=== PATIENT | male | born 1955 | race Caucasian/White ===

== ENCOUNTER 2017-03-01 02:30 | Observation (INO) | payer MEDICARE, OTHER ==
[2017-03-01] VITALS (13 sets, daily range): BP systolic 130–178; BP diastolic 75–107; PULSE 65–89; RESP 16–20; TEMP 97.5–98.6; O2SAT 93–99
[~2017-03-01] VITALS: Ht 175.3 cm; Wt 93.0 kg
[~2017-03-01 02:30] MED LIST: ALPR.25 PO; CEPH500C3 PO; HYDR-2768 PO; LISI-363 PO; SULF1TAB47 PO; TRAM50 PO; TRAZ150T75 PO; [UNRECOGNIZED DRUG - SUPPLY]
[2017-03-01] MEDS ORDERED: SODIUM CHLORIDE 0.9% FLUSH 10 ML FLUSH IVF PRN ×2 (03:00→06:30)
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
[2017-03-01 03:23] LABS: AUTOMATED NEUTROPHIL # 4.6 TH/MM3 (1.8-7.7); BASOPHIL # 0.1 TH/MM3 (0-0.2); BASOPHIL % 0.8 % (0.0-2.0); EOSINOPHIL # 0.1 TH/MM3 (0-0.4); EOSINOPHIL % 0.8 % (0.0-4.0); HEMATOCRIT 46.6 % (39.0-51.0); HEMO FLAGS DIFF FINAL; LYMPH % 26.3 % (9.0-44.0); LYMPHOCYTE # 1.9 TH/MM3 (1.0-4.8); MEAN CORPUSCULAR HEMOGLOBIN 32.4 PG (27.0-34.0); MEAN CORPUSCULAR HGB CONC 34.1 % (32.0-36.0); MONO % 8.7 % (0.0-8.0); NEUT % 63.4 % (16.0-70.0); PLATELET COUNT 249 TH/MM3 (150-450); RED CELL DISTRIBUTION WIDTH 14.1 % (11.6-17.2); WHITE BLOOD COUNT 7.2 TH/MM3 (4.0-11.0)
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
[2017-03-01 03:33] LABS: APTT (PATIENT) 27.1 SEC (24.3-30.1); PROTHROMBIN TIME - PATIENT 10.8 SEC (9.8-11.6)
[2017-03-01 03:47] LABS: ANION GAP 15 MEQ/L (5-15); BICARBONATE 21.4 MEQ/L (21.0-32.0); BLOOD UREA NITROGEN 11 MG/DL (7-18); CHLORIDE 114 MEQ/L (98-107); GLOMERULAR FILTRATION RATE 85 ML/MIN (>89); MAGNESIUM 1.9 MG/DL (1.5-2.5); POTASSIUM 3.4 MEQ/L (3.5-5.1); SODIUM (NA) 150 MEQ/L (136-145)
[2017-03-01 03:51] LABS: CREATINE KINASE 208 U/L (39-308)
[2017-03-01 03:59] LABS: BLOOD, URINE NEG (NEG); COMMENT (UR) CULT NOT INDICATED; CULTURE IF INDICATED CULT NOT INDICATED; GLUCOSE,URINE NEG (NEG); KETONE, URINE NEG (NEG); MUCUS URINE FEW /lpf (OCC); NITRITE,URINE NEG (NEG); URINE COLOR YELLOW (YELLW/STRAW)
[2017-03-01 04:17] LABS: CKMB 2.6 NG/ML (0.5-3.6)
[2017-03-01] MEDS ORDERED: IOHEXOL 350 MG/ML 10 ML VIAL (for RAD DIAG) IV ONE (04:45)
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
[2017-03-01] MEDS ORDERED: MAGNESIUM HYDROXIDE SUSP 30 ML CUP PO PRN (06:30)
[2017-03-01] MEDS ORDERED: NALOXONE HCL 0.4 MG/ML AMP IV PRN (06:30)
[2017-03-01] MEDS ORDERED: SODIUM CHLORIDE 0.9% FLUSH 10 ML FLUSH IV FLUSH PRN (06:30)
[2017-03-01] MEDS ORDERED: ACETAMINOPHEN 325 MG TAB PO PRN (06:30)
[2017-03-01] MEDS ORDERED: BISACODYL 10 MG SUPP RECTAL PRN (06:30)
[2017-03-01] MEDS ORDERED: SENNOSIDES 8.6 MG TAB PO PRN (06:30)
[2017-03-01] MEDS ORDERED: LACTULOSE SYRUP 20 GM/30 ML CUP PO PRN (06:30)
[2017-03-01] MEDS: SODIUM CHLOR 0.45% 1000 ML INJ 1,000 ML IV SCH ×3 (07:00→17:45)
[2017-03-01] MEDS: DOCUSATE SODIUM 50 MG/SENNA 8.6 MG TAB PO SCH ×2 (08:28→20:59)
[2017-03-01] MEDS: SODIUM CHLORIDE 0.9% FLUSH 10 ML FLUSH IV FLUSH SCH ×2 (08:28→20:58)
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
[2017-03-01] MEDS ORDERED: SODIUM CHLORIDE 0.9% FLUSH 10 ML FLUSH IV FLUSH SCH (09:00)
[2017-03-01] MEDS ORDERED: LISI-515 PO (09:40)
[2017-03-01] MEDS ORDERED: TRAZ50TA12 PO (09:40)
[2017-03-01] MEDS ORDERED: TRAM50TA PO (09:40)
[2017-03-01] MEDS ORDERED: ALPR0.25 PO (09:40)
[2017-03-01] MEDS ORDERED: HYDR25TA5 PO (09:40)
[2017-03-01] MEDS: ASPIRIN EC 81 MG TABEC PO SCH (11:35)
[2017-03-01] MEDS ORDERED: HYDR-3366 PO ×2 (11:51→15:30)
[2017-03-01] MEDS ORDERED: ALPR2TAB3 PO ×2 (11:51→15:30)
[2017-03-01] MEDS: HYDROCHLOROTHIAZIDE 25 MG TAB PO SCH (14:27)
[2017-03-01] MEDS: LISINOPRIL 20 MG TAB PO SCH (14:27)
[2017-03-01] MEDS ORDERED: CELE20TA PO (15:30)
--- NOTE | 2017-03-01 15:39 | EKG ---
Date Performed: 03/01/2017 Time Performed: 02:36:12 PTAGE: 61 years EKG: Sinus rhythm BORDERLINE LEFT AXIS DEVIATION When compared to previous tracing, previous tracing read as Possible inferior infarct-age undetermined, but there are no Findings to confirm that on this tracing. BORDERL INE ECG PREVIOUS TRACING : 06/23/2015 00.24 DOCTOR: Emerson Gunter Interpretating Date/Time 03/01/2017 15:38:54
--- NOTE | 2017-03-01 16:05 | RADRPT ---
EXAM DATE/TIME: 03/01/2017 15:35 [facility] COMPARISON: No previous studies available for comparison. INDICATIONS : Left sided weakness. MEDICAL HISTORY : Hypertension. Cardiovascular disease SURGICAL HISTORY : Abdominal aortic aneurysm repair. Inguinal hernia repair. Appendectomy. ENCOUNTER: Initial ACUITY: 1 day PAIN SCORE: 0/10 LOCATION: cranial TECHNIQUE: Multiplanar, multisequence MRI of the brain was performed without contrast. FINDINGS: CEREBRUM: The ventricles are normal for age. No evidence of midline shift, mass lesion, hemorrhage or acute in farction. No extraaxial fluid collections are seen. The pituitary gland and suprasellar cistern are normal in configuration. WHITE MATTER: No significant signal abnormalities are seen in the white matter. POSTERIOR FOSSA: The cerebellum and brainstem are intact. The 4th ventricle is midline. The cerebellopontine angle is unremarkable. The cerebellar tonsils are normal in position. DIFFUSION IMAGING: No focal areas of restricted diffusion are seen. No evidence of acute infarction. EXTRACRANIAL: The visualized portions of the orbits and paranasal sinuses are unremarkable. CONCLUSION: No acute disease. Sean rTan MD on March 01, 2017 at 16:02 Board Certified Radiologist. This report was verified electronically.
[2017-03-01] MEDS: ACETAMINOPHEN/HYDROcodone 325 MG/10 MG TAB PO PRN ×2 (17:25→23:43)
[2017-03-01] MEDS: ALPRAZolam 1 MG TAB PO PRN (17:26)
[2017-03-01] MEDS ORDERED: traZODone HCL 100 MG TAB PO SCH (21:00)
[2017-03-02 00:12] VITALS: BP 144/78; PULSE 68; RESP 18; TEMP 98.4; O2SAT 97
[2017-03-02] MEDS: ALPRAZolam 1 MG TAB PO PRN ×2 (00:49→07:27)
[2017-03-02 03:55] VITALS: BP 176/88; PULSE 60; RESP 18; TEMP 98.8; O2SAT 95
[2017-03-02] MEDS: ACETAMINOPHEN/HYDROcodone 325 MG/10 MG TAB PO PRN (05:50)
[2017-03-02 06:37] LABS: AUTOMATED NEUTROPHIL # 3.6 TH/MM3 (1.8-7.7); BASOPHIL % 0.5 % (0.0-2.0); EOSINOPHIL # 0.1 TH/MM3 (0-0.4); EOSINOPHIL % 1.7 % (0.0-4.0); HEMATOCRIT 44.5 % (39.0-51.0); HEMO FLAGS DIFF FINAL; LYMPH % 32.9 % (9.0-44.0); LYMPHOCYTE # 2.1 TH/MM3 (1.0-4.8); MEAN CELL VOLUME 95.8 FL (80.0-100.0); MEAN CORPUSCULAR HEMOGLOBIN 31.6 PG (27.0-34.0); MONO % 7.6 % (0.0-8.0); NEUT % 57.3 % (16.0-70.0); PLATELET COUNT 204 TH/MM3 (150-450); RED BLOOD COUNT 4.64 MIL/MM3 (4.50-5.90); RED CELL DISTRIBUTION WIDTH 14.4 % (11.6-17.2); WHITE BLOOD COUNT 6.4 TH/MM3 (4.0-11.0)
[2017-03-02 07:02] LABS: BICARBONATE 30.5 MEQ/L (21.0-32.0); POTASSIUM 3.6 MEQ/L (3.5-5.1)
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
[2017-03-02 07:40] VITALS: BP 170/109; PULSE 54; RESP 20; TEMP 98.2; O2SAT 96
[2017-03-02 08:10] VITALS: PULSE 64
[2017-03-02] MEDS: SODIUM CHLOR 0.45% 1000 ML INJ 1,000 ML IV SCH (08:10)
[2017-03-02] MEDS: DOCUSATE SODIUM 50 MG/SENNA 8.6 MG TAB PO SCH (08:11)
[2017-03-02] MEDS: HYDROCHLOROTHIAZIDE 25 MG TAB PO SCH (08:11)
[2017-03-02] MEDS: LISINOPRIL 20 MG TAB PO SCH (08:11)
[2017-03-02] MEDS: SODIUM CHLORIDE 0.9% FLUSH 10 ML FLUSH IV FLUSH SCH (08:11)
[2017-03-02] MEDS: ASPIRIN EC 81 MG TABEC PO SCH (08:11)
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
[2017-03-02] MEDS ORDERED: cloNIDine HCL 0.1 MG TAB PO PRN (08:30)
[2017-03-02] MEDS ORDERED: INFLUENZA VIRUS VACCINE (QUADRIVALENT) 0.5 ML SYR IM ONE (10:00)
[2017-03-02 10:03] VITALS: BP 120/78; PULSE 65
== END 2017-03-02 12:36 | disposition home or self-care (01) ==
LOC: NEPC 02:30 → NEDA 06:26 → NEPGCP 07:39
PROVIDERS: ADMIT Internal Medicine; ATTEND Internal Medicine
DX: R07.89 Other chest pain (principal); I11.0 Hypertensive heart disease with heart failure; I50.9 Heart failure, unspecified; F41.9 Anxiety disorder, unspecified; G89.29 Other chronic pain; M54.5 Low back pain; E87.0 Hyperosmolality and hypernatremia; F10.10 Alcohol abuse, uncomplicated; R20.0 Anesthesia of skin; I25.2 Old myocardial infarction; G62.9 Polyneuropathy, unspecified; M19.90 Unspecified osteoarthritis, unspecified site; F31.9 Bipolar disorder, unspecified; Y90.6 Blood alcohol level of 120-199 mg/100 ml; Z88.5 Allergy status to narcotic agent; Z86.73 Personal history of transient ischemic attack (TIA), and cerebral infarction without residual deficits; Z86.74 Personal history of sudden cardiac arrest
CPT/HCPCS: 70450; 70551; 71010; 74177; 80048; 80307; 81001; 82550; 82552; 83735; 84484; 85025; 85610; 85730; 93005; 99285; G0378; Q9967

== ENCOUNTER 2017-04-12 04:04 | Observation (INO) | payer MEDICARE ==
[2017-04-12] VITALS (9 sets, daily range): BP systolic 115–139; BP diastolic 79–88; PULSE 63–75; RESP 17–19; TEMP 96.2–97.6; O2SAT 92–99
[~2017-04-12] VITALS: Ht 175.3 cm; Wt 91.7 kg
[~2017-04-12 04:04] MED LIST changes: -ALPR.25 PO; +ALPR2TAB3 PO; +CELE20TA PO; -CEPH500C3 PO; -HYDR-2768 PO; +HYDR-3366 PO; +HYDR25TA5 PO; -LISI-363 PO; +LISI-515 PO; -SULF1TAB47 PO; -TRAM50 PO; -TRAZ150T75 PO; -[UNRECOGNIZED DRUG - SUPPLY]
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
[2017-04-12] MEDS ORDERED: XANA2TAB2 PO (04:14)
[2017-04-12] MEDS ORDERED: TRAZ100T6 PO (04:14)
[2017-04-12] MEDS ORDERED: CELE50CA PO (04:14)
[2017-04-12] MEDS ORDERED: SODIUM CHLORIDE 0.9% FLUSH 10 ML FLUSH IVF PRN (04:15)
[2017-04-12] MEDS ORDERED: NITROGLYCERIN 2% OINT 1 GM PACKET TOP ONE (04:15)
[2017-04-12] MEDS ORDERED: ASPIRIN 325 MG TAB PO ONE (04:15)
[2017-04-12 04:35] LABS: AUTOMATED NEUTROPHIL # 3.9 TH/MM3 (1.8-7.7); BASOPHIL # 0.1 TH/MM3 (0-0.2); BASOPHIL % 0.9 % (0.0-2.0); EOSINOPHIL # 0.1 TH/MM3 (0-0.4); EOSINOPHIL % 1.1 % (0.0-4.0); HEMATOCRIT 49.6 % (39.0-51.0); HEMO FLAGS DIFF FINAL; LYMPH % 31.2 % (9.0-44.0); LYMPHOCYTE # 2.1 TH/MM3 (1.0-4.8); MEAN CELL VOLUME 94.5 FL (80.0-100.0); MEAN CORPUSCULAR HEMOGLOBIN 31.5 PG (27.0-34.0); MEAN CORPUSCULAR HGB CONC 33.3 % (32.0-36.0); MONO % 6.5 % (0.0-8.0); NEUT % 60.3 % (16.0-70.0); PLATELET COUNT 285 TH/MM3 (150-450); RED BLOOD COUNT 5.25 MIL/MM3 (4.50-5.90); RED CELL DISTRIBUTION WIDTH 12.6 % (11.6-17.2); WHITE BLOOD COUNT 6.6 TH/MM3 (4.0-11.0)
[2017-04-12 04:46] LABS: CHLORIDE 108 MEQ/L (98-107); POTASSIUM 3.3 MEQ/L (3.5-5.1); SODIUM (NA) 142 MEQ/L (136-145)
[2017-04-12 04:50] LABS: ANION GAP 9 MEQ/L (5-15); BICARBONATE 25.4 MEQ/L (21.0-32.0); BLOOD UREA NITROGEN 13 MG/DL (7-18)
[2017-04-12 04:52] LABS: APTT (PATIENT) 27.5 SEC (24.3-30.1); PROTHROMBIN TIME - PATIENT 11.1 SEC (9.8-11.6)
[2017-04-12 04:53] LABS: ALT (GPT) 43 U/L (12-78); AST (GOT) 35 U/L (15-37); GLOMERULAR FILTRATION RATE 78 ML/MIN (>89)
[2017-04-12 04:54] LABS: TOTAL BILIRUBIN ADULT 0.8 MG/DL (0.2-1.0)
[2017-04-12 04:56] LABS: ALKALINE PHOSPHATASE 51 U/L (45-117); CREATINE KINASE 170 U/L (39-308)
--- NOTE | 2017-04-12 04:56 | RADRPT ---
EXAM DATE/TIME: 04/12/2017 04:23 [facility] COMPARISON: CHEST SINGLE AP, March 01, 2017, 3:07. INDICATIONS : Left upper chest pain. MEDICAL HISTORY : Hypertension. Congestive heart failure. TIA SURGICAL HISTORY : Inguinal hernia repair. Appendectomy. Abdominal aortic aneurysm repair. Ruptured aorta ENCOUNTER: Initial ACUITY: 1 day PAIN SCORE: 8/10 LOCATION: Left chest FINDINGS: A single view of the chest demonstrates the lungs to be symmetrically aerated without evidence of mas s, infiltrate or effusion. The cardiomediastinal contours are unremarkable. Old rib fractures on the left. CONCLUSION: No acute disease. Romeo Means MD on April 12, 2017 at 4:54 Board Certified Radiologist. This report was verified electronically.
[2017-04-12 05:08] LABS: CKMB 3.1 NG/ML (0.5-3.6)
[2017-04-12] MEDS ORDERED: POTASSIUM CHLORIDE 20 MEQ CONTROLLED RELEASE TAB PO ONE (05:15)
[2017-04-12] MEDS ORDERED: SODIUM CHLORIDE 0.9% FLUSH 10 ML FLUSH IV FLUSH PRN (05:15)
[2017-04-12] MEDS ORDERED: ACETAMINOPHEN 500 MG CPLT PO PRN (05:15)
[2017-04-12] MEDS ORDERED: ONDANSETRON HCL 4 MG/2 ML VIAL IV PRN (05:15)
[2017-04-12] MEDS ORDERED: ALPRAZolam 1 MG TAB PO PRN (07:15)
[2017-04-12] MEDS ORDERED: HYDROCHLOROTHIAZIDE 25 MG TAB PO SCH (09:00)
[2017-04-12] MEDS ORDERED: CITALOPRAM HYDROBROMIDE 20 MG TAB PO SCH (09:00)
[2017-04-12] MEDS ORDERED: LISINOPRIL 20 MG TAB PO SCH (09:00)
[2017-04-12] MEDS ORDERED: SODIUM CHLORIDE 0.9% FLUSH 10 ML FLUSH IV FLUSH SCH (09:00)
[2017-04-12 09:05] LABS: CREATINE KINASE 144 U/L (39-308)
[2017-04-12 09:17] LABS: CKMB 2.6 NG/ML (0.5-3.6)
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
[2017-04-12] MEDS ORDERED: REGADENOSON INJ 0.4 MG/5 ML SYR IV ONE (10:45)
[2017-04-12 11:18] LABS: CREATINE KINASE 144 U/L (39-308)
--- NOTE | 2017-04-12 12:14 | EKG ---
Date Performed: 04/12/2017 Time Performed: 10:33:41 PTAGE: 62 years EKG: Sinus rhythm LOW QRS VOLTAGE IN PRECORDIAL LEADS PATTERN CONSISTENT WITH PULMONARY DISEASE ABNORMAL ECG PREVIOUS TRACING : 04/12/2017 08.07 Compared to prior tracing no significant change DOCTOR: Favio Persaud Interpretating Date/Time 04/12/2017 12:11:58
--- NOTE | 2017-04-12 12:22 | TR ---
Date Performed: 04/12/2017 Time Performed: 11:14:17 DOCTOR: See Lee DRUG LIST: CLINICAL HISTORY: REASON FOR TEST: Chest pain REASON FOR ENDING: OBSERVATION: CONCLUSION: Lexiscan stress test was performed under standard four minute protocol. Radionuclide was injected one minute prior to ending the test. No electrocardiographic abormalities were present to suggest ischemia. Nuclear imaging and interpretation are pending. COMMENTS: Pending results of scan
--- NOTE | 2017-04-12 12:34 | RADRPT ---
EXAM DATE/TIME: 04/12/2017 10:47 [facility] COMPARISON: MYOCARDIAL PERF PHARM SPECT, GATED W/EF, June 06, 2011, 12:39. INDICATIONS : Left chest pain. Angina. DOSE: 26.6 mCi Tc99m Myoview at stress. 8.8 mCi Tc99m Myoview at rest. 0.4 mg Lexiscan STRESS SYMPTOMS: Facial flush, nausea and chest pain. EJECTION FRACTION: 62% MEDICAL HISTORY : Myocardial infarction. Congestive heart failure. Aneurysm, abdominal. Hypertension. Hiatal hernia. SURGICAL HISTORY : CABG Abdominal aortic aneurysm repair. Appendectomy. Hernia repair. ENCOUNTER: Initial ACUITY: 1 day PAIN SCALE: 8/10 LOCATION: Left chest TECHNIQUE: The patient underwent pharmacologic stress with infusion of prescribed dose. Continuous ECG tracing was monitored during stress. Gated SPECT imaging was performed after stress and conventional SPECT i maging was performed at rest. The examination was performed on a SPECT/CT scanner, both attenuation and non-corrected datasets were reviewed. FINDINGS: DISTRIBUTION: The maximum perfused segment at stress is in the anterolateral wall. PERFUSION STUDY: The pattern of perfusion at stress shows approximately 10% redistribution in segments of the anterose ptal and septal desai. This would not be considered statistically significant, however. GATED STUDY: There is intact wall motion and thickening without hypokinetic or dyskinetic segments. CONCLUSION: 1. 10% redistribution in punctate segments of the anteroseptal and septal desai which would not be co nsidered significant. As such, no scintigraphic findings of infarct or ischemia. 2. Excellent wall motion throughout with an estimated ejection fraction of 62% RISK CATEGORY: Low (<1% Annual Mortality Rate) Viraj De La Cruz MD on April 12, 2017 at 12:28 Board Certified Radiologist. This report was verified electronically.
[2017-04-12] MEDS ORDERED: POTASSIUM CHLORIDE 10 MEQ CONTROLLED RELEASE TAB PO ONE (13:00)
--- NOTE | 2017-04-12 13:17 | EKG ---
Date Performed: 04/12/2017 Time Performed: 08:07:02 PTAGE: 62 years EKG: Sinus rhythm BORDERLINE LEFT AXIS DEVIATION POSSIBLE INFERIOR INFARCT, AGE INDETERMINE BORDERLINE ECG INTERPRETAT ION BASED ON A DEFAULT AGE OF 40 YEARS PREVIOUS TRACING : 04/12/2017 05.54 Compared to prior tracing no significant change DOCTOR: Favio Persaud Interpretating Date/Time 04/12/2017 13:16:14
--- NOTE | 2017-04-12 13:21 | EKG ---
Date Performed: 04/12/2017 Time Performed: 05:54:55 PTAGE: 62 years EKG: Sinus rhythm INFERIOR MYOCARDIAL INFARCTION ABNORMAL ECG PREVIOUS TRACING : 04/12/2017 05.30 Compared to prior tracing no significant change DOCTOR: Favio Persaud Interpretating Date/Time 04/12/2017 13:19:43
--- NOTE | 2017-04-12 13:21 | EKG ---
Date Performed: 04/12/2017 Time Performed: 05:30:30 PTAGE: 62 years EKG: Sinus rhythm INFERIOR MYOCARDIAL INFARCTION ABNORMAL ECG PREVIOUS TRACING : 04/12/2017 04.14 Compared to prior tracing no significant change DOCTOR: Favio Persaud Interpretating Date/Time 04/12/2017 13:20:41
--- NOTE | 2017-04-12 13:24 | EKG ---
Date Performed: 04/12/2017 Time Performed: 04:14:48 PTAGE: 62 years EKG: Sinus rhythm POSSIBLE INFERIOR INFARCT NORMAL ECG PREVIOUS TRACING : 03/01/2017 02.36 Compared to prior tracing no significant change DOCTOR: Favio Persaud Interpretating Date/Time 04/12/2017 13:23:20
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
[2017-04-12] MEDS ORDERED: traZODone HCL 100 MG TAB PO SCH (21:00)
== END 2017-04-12 16:00 | disposition home or self-care (01) ==
LOC: PHED 04:04 → PHEDA 05:15 → PH5A 06:36
PROVIDERS: ADMIT Hospitalist; ATTEND Hospitalist
DX: R07.89 Other chest pain (principal); I10 Essential (primary) hypertension; F31.9 Bipolar disorder, unspecified; M54.9 Dorsalgia, unspecified; G89.29 Other chronic pain; R10.13 Epigastric pain; M54.2 Cervicalgia; M79.602 Pain in left arm; R11.0 Nausea; R61 Generalized hyperhidrosis; R42 Dizziness and giddiness; R06.02 Shortness of breath; I20.9 Angina pectoris, unspecified; I11.0 Hypertensive heart disease with heart failure; I50.9 Heart failure, unspecified; I25.2 Old myocardial infarction; G62.9 Polyneuropathy, unspecified; F32.9 Major depressive disorder, single episode, unspecified; F41.9 Anxiety disorder, unspecified; M19.90 Unspecified osteoarthritis, unspecified site; Z86.73 Personal history of transient ischemic attack (TIA), and cerebral infarction without residual deficits; Z79.899 Other long term (current) drug therapy; Z96.651 Presence of right artificial knee joint
CPT/HCPCS: 71010; 78452; 80053; 82550; 82552; 83735; 84484; 85025; 85610; 85730; 93005; 93017; 99285; A9502; G0378; J2785

== ENCOUNTER 2017-06-10 23:53 | Emergency (ER) | payer MEDICARE, OTHER ==
[~2017-06-10] VITALS: Ht 175.3 cm; Wt 88.7 kg
[~2017-06-10 23:53] MED LIST changes: +CELE50CA PO; +TRAZ100T6 PO; +XANA2TAB2 PO
[2017-06-10 23:56] VITALS: BP 110/79; PULSE 71; RESP 20; O2SAT 98
[2017-06-11] MEDS ORDERED: ASPI81CH CHEW (00:01)
[2017-06-11] MEDS ORDERED: NITROGLYCERIN 0.4 MG SL 25 TABS/BTL SL SCH (00:15)
[2017-06-11] MEDS ORDERED: ASPIRIN 81 MG CHEW TAB PO ONE (00:15)
[2017-06-11] MEDS ORDERED: SODIUM CHLORIDE 0.9% FLUSH 10 ML FLUSH IVF PRN (00:15)
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
--- NOTE | 2017-06-11 00:27 | RADRPT ---
EXAM DATE/TIME: 06/11/2017 00:22 [facility] COMPARISON: CHEST SINGLE AP, April 12, 2017, 4:23. INDICATIONS : Left side chest pain. MEDICAL HISTORY : Myocardial infarction. Congestive heart failure. Aneurysm, abdominal. Hypertension. Hiatal hernia. SURGICAL HISTORY : Abdominal aortic aneurysm repair. Hiatal hernia. ENCOUNTER: Initial ACUITY: 1 day PAIN SCORE: 7/10 LOCATION: Left lower chest FINDINGS: A single view of the chest demonstrates the lungs to be symmetrically aerated without evidence of mas s, infiltrate or effusion. The cardiomediastinal contours are unremarkable. Osseous structures are intact. CONCLUSION: 1. No acute cardiopulmonary disease. Tanner Elder MD on June 11, 2017 at 0:25 Board Certified Radiologist. This report was verified electronically.
[2017-06-11 00:41] VITALS: BP 111/72; O2SAT 98
[2017-06-11 00:49] LABS: AUTOMATED NEUTROPHIL # 8.2 TH/MM3 (1.8-7.7); BASOPHIL # 0.1 TH/MM3 (0-0.2); BASOPHIL % 0.6 % (0.0-2.0); EOSINOPHIL # 0.1 TH/MM3 (0-0.4); EOSINOPHIL % 0.5 % (0.0-4.0); HEMATOCRIT 44.4 % (39.0-51.0); HEMO FLAGS DIFF FINAL; LYMPH % 19.7 % (9.0-44.0); LYMPHOCYTE # 2.2 TH/MM3 (1.0-4.8); MEAN CELL VOLUME 93.6 FL (80.0-100.0); MEAN CORPUSCULAR HEMOGLOBIN 31.3 PG (27.0-34.0); MEAN CORPUSCULAR HGB CONC 33.5 % (32.0-36.0); MONO % 4.7 % (0.0-8.0); NEUT % 74.5 % (16.0-70.0); PLATELET COUNT 285 TH/MM3 (150-450); RED BLOOD COUNT 4.75 MIL/MM3 (4.50-5.90); RED CELL DISTRIBUTION WIDTH 13.3 % (11.6-17.2)
[2017-06-11 00:57] LABS: ANION GAP 7 MEQ/L (5-15); BICARBONATE 26.8 MEQ/L (21.0-32.0); BLOOD UREA NITROGEN 13 MG/DL (7-18); CHLORIDE 108 MEQ/L (98-107); GLOMERULAR FILTRATION RATE 70 ML/MIN (>89); MAGNESIUM 2.1 MG/DL (1.5-2.5); POTASSIUM 3.6 MEQ/L (3.5-5.1); SODIUM (NA) 142 MEQ/L (136-145)
[2017-06-11 01:00] LABS: APTT (PATIENT) 26.4 SEC (24.3-30.1); PROTHROMBIN TIME - PATIENT 10.8 SEC (9.8-11.6)
[2017-06-11 01:01] LABS: ALCOHOL 115 MG/DL (0-5); CREATINE KINASE 275 U/L (39-308)
--- NOTE | 2017-06-11 01:04 | RADRPT ---
EXAM DATE/TIME: 06/11/2017 00:44 [facility] COMPARISON: CT BRAIN W/O CONTRAST, March 01, 2017, 4:43. INDICATIONS : Left side facial numbness. RADIATION DOSE: 37.15 CTDIvol (mGy) MEDICAL HISTORY : Seizures. Hypertension. Myocardial infarction.AAA. CHF. SURGICAL HISTORY : Abdominal aortic aneurysm repair. CABG ENCOUNTER: Initial ACUITY: 1 day PAIN SCALE: 0/10 LOCATION: cranial TECHNIQUE: Multiple contiguous axial images were obtained of the head. Using automated exposure control and adj ustment of the mA and/or kV according to patient size, radiation dose was kept as low as reasonably a chievable to obtain optimal diagnostic quality images. DICOM format image data is available electro nically for review and comparison. FINDINGS: CEREBRUM: Moderate cerebral volume loss in the upper limits of normal for age. The ventricles are normal for de gree of atrophy. [place]-white matter differentiation appears maintained. No evidence of midline shift, mass lesion, hemorrhage or acute infarction. No extra-axial fluid collections are seen. POSTERIOR FOSSA: The cerebellum and brainstem are intact. The 4th ventricle is midline. The cerebellopontine angle i s unremarkable. EXTRACRANIAL: The visualized portion of the orbits is intact. SKULL: The calvaria is intact. No evidence of skull fracture. CONCLUSION: 1. No acute intracranial abnormality. Tanner Elder MD on June 11, 2017 at 1:01 Board Certified Radiologist. This report was verified electronically.
[2017-06-11 01:15] VITALS: BP 110/75; PULSE 71; O2SAT 97
--- NOTE | 2017-06-11 12:48 | EKG ---
Date Performed: 06/10/2017 Time Performed: 23:55:06 PTAGE: 62 years EKG: Sinus rhythm NORMAL ECG PREVIOUS TRACING : 04/12/2017 10.33 DOCTOR: Constantino Griffiths Interpretating Date/Time 06/11/2017 12:44:30
== END 2017-06-11 01:28 ==
LOC: NEPE 23:53
DX: R07.89 Other chest pain (principal); I10 Essential (primary) hypertension; R20.2 Paresthesia of skin; F10.920 Alcohol use, unspecified with intoxication, uncomplicated; M19.90 Unspecified osteoarthritis, unspecified site
CPT/HCPCS: 70450; 71010; 80048; 80307; 82550; 82552; 83735; 84484; 85025; 85610; 85730; 93005

== ENCOUNTER 2017-08-09 00:31 | Emergency (ER) | payer MEDICARE, OTHER ==
[~2017-08-09] VITALS: Ht 175.3 cm; Wt 86.0 kg
[~2017-08-09 00:31] MED LIST changes: +ASPI-516 CHEW; +TRAZ100T10 PO; -TRAZ100T6 PO; -XANA2TAB2 PO
[2017-08-09 00:37] VITALS: BP 116/65; PULSE 70; RESP 16; O2SAT 97
[2017-08-09 00:38] VITALS: BP 117/66; PULSE 73; RESP 16; TEMP 98.4
[2017-08-09 01:03] LABS: AUTOMATED NEUTROPHIL # 5.1 TH/MM3 (1.8-7.7); BASOPHIL # 0.1 TH/MM3 (0-0.2); BASOPHIL % 0.9 % (0.0-2.0); EOSINOPHIL # 0.1 TH/MM3 (0-0.4); EOSINOPHIL % 0.7 % (0.0-4.0); HEMATOCRIT 47.4 % (39.0-51.0); HEMO FLAGS DIFF FINAL; LYMPH % 27.3 % (9.0-44.0); LYMPHOCYTE # 2.2 TH/MM3 (1.0-4.8); MEAN CELL VOLUME 95.3 FL (80.0-100.0); MEAN CORPUSCULAR HEMOGLOBIN 32.1 PG (27.0-34.0); MEAN CORPUSCULAR HGB CONC 33.6 % (32.0-36.0); MONO % 9.5 % (0.0-8.0); NEUT % 61.6 % (16.0-70.0); PLATELET COUNT 310 TH/MM3 (150-450); RED BLOOD COUNT 4.98 MIL/MM3 (4.50-5.90); RED CELL DISTRIBUTION WIDTH 14.6 % (11.6-17.2); WHITE BLOOD COUNT 8.2 TH/MM3 (4.0-11.0)
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
[2017-08-09 01:17] LABS: APTT (PATIENT) 23.3 SEC (24.3-30.1); PROTHROMBIN TIME - PATIENT 10.5 SEC (9.8-11.6)
[2017-08-09 01:20] LABS: CREATINE KINASE 239 U/L (39-308)
--- NOTE | 2017-08-09 01:26 | RADRPT ---
EXAM DATE/TIME: 08/09/2017 01:07 [facility] COMPARISON: CHEST SINGLE AP, June 11, 2017, 0:22. INDICATIONS : Shortness of breath. MEDICAL HISTORY : Myocardial infarction. Congestive heart failure. Hypertension. AAA SURGICAL HISTORY : Abdominal aortic aneurysm repair. Hernai repair ENCOUNTER: Initial ACUITY: 1 day PAIN SCORE: 0/10 LOCATION: Bilateral chest FINDINGS: Single AP view of the chest. The lungs are clear. Cardiomediastinal silhouette within normal limits. No evidence of pleural effusion or pneumothorax. Old bilateral rib fractures. CONCLUSION: No acute cardiopulmonary disease identified. Clark Jarvis MD on August 09, 2017 at 1:24 Board Certified Radiologist. This report was verified electronically.
[2017-08-09 01:28] LABS: ANION GAP 13 MEQ/L (5-15); BICARBONATE 22.5 MEQ/L (21.0-32.0); BLOOD UREA NITROGEN 18 MG/DL (7-18); CHLORIDE 106 MEQ/L (98-107); GLOMERULAR FILTRATION RATE 78 ML/MIN (>89); POTASSIUM 3.1 MEQ/L (3.5-5.1); SODIUM (NA) 141 MEQ/L (136-145)
[2017-08-09 01:32] LABS: CKMB 3.4 NG/ML (0.5-3.6)
[2017-08-09] MEDS ORDERED: ASPIRIN 81 MG CHEW TAB CHEW ONE (01:45)
[2017-08-09] MEDS ORDERED: LORazepam 1 MG TAB PO ONE (03:15)
[2017-08-09 03:23] VITALS: BP 137/85
[2017-08-09] MEDS ORDERED: POTASSIUM CHLORIDE 20 MEQ CONTROLLED RELEASE TAB PO ONE (03:30)
--- NOTE | 2017-08-09 12:20 | EKG ---
Date Performed: 08/09/2017 Time Performed: 00:37:56 PTAGE: 62 years EKG: Sinus rhythm Consider INFERIOR MYOCARDIAL INFARCTION - age indeterminate ABNORMAL ECG PREVIOUS TRACING : 06/10/2017 23.55 DOCTOR: Dwight Ferrer Interpretating Date/Time 08/09/2017 12:18:02
== END 2017-08-09 03:33 ==
LOC: NEPC 00:31
DX: R07.9 Chest pain, unspecified (principal); I10 Essential (primary) hypertension; I50.9 Heart failure, unspecified; F31.9 Bipolar disorder, unspecified; F41.9 Anxiety disorder, unspecified
CPT/HCPCS: 71010; 80048; 82550; 82552; 84484; 85025; 85610; 85730; 93005; 99285

== ENCOUNTER 2018-02-07 18:47 | Emergency (ER) | payer MEDICARE, OTHER ==
[2018-02-07 19:42] LABS: AUTOMATED NEUTROPHIL # 5.2 TH/MM3 (1.8-7.7); BASOPHIL % 0.5 % (0.0-2.0); EOSINOPHIL # 0.1 TH/MM3 (0-0.4); EOSINOPHIL % 1.5 % (0.0-4.0); HEMATOCRIT 45.2 % (39.0-51.0); HEMO FLAGS DIFF FINAL; HEMOGLOBIN 15.3 GM/DL (13.0-17.0); LYMPH % 29.1 % (9.0-44.0); LYMPHOCYTE # 2.5 TH/MM3 (1.0-4.8); MEAN CELL VOLUME 95.9 FL (80.0-100.0); MEAN CORPUSCULAR HEMOGLOBIN 32.5 PG (27.0-34.0); MEAN CORPUSCULAR HGB CONC 33.9 % (32.0-36.0); MEAN PLATELET VOLUME 7.1 FL (7.0-11.0); MONO % 7.4 % (0.0-8.0); MONOCYTE # 0.6 TH/MM3 (0-0.9); NEUT % 61.5 % (16.0-70.0); PLATELET COUNT 279 TH/MM3 (150-450); RED BLOOD COUNT 4.71 MIL/MM3 (4.50-5.90); RED CELL DISTRIBUTION WIDTH 15.1 % (11.6-17.2); WHITE BLOOD COUNT 8.4 TH/MM3 (4.0-11.0)
[2018-02-07 19:53] LABS: APTT (PATIENT) 24.1 SEC (24.3-30.1); INTERNATIONAL NORMALIZED RATIO 1.1 RATIO; PROTHROMBIN TIME - PATIENT 10.7 SEC (9.8-11.6)
[2018-02-07 20:02] LABS: ALBUMIN 3.6 GM/DL (3.4-5.0); ALKALINE PHOSPHATASE 80 U/L (45-117); ALT (GPT) 30 U/L (12-78); ANION GAP 11 MEQ/L (5-15); AST (GOT) 33 U/L (15-37); BICARBONATE 24.9 MEQ/L (21.0-32.0); BLOOD UREA NITROGEN 15 MG/DL (7-18); CALCIUM 8.3 MG/DL (8.5-10.1); CHLORIDE 106 MEQ/L (98-107); CREATININE 1.33 MG/DL (0.60-1.30); GLOMERULAR FILTRATION RATE 54 ML/MIN (>89); GLUCOSE,RANDOM 106 MG/DL (74-106); SODIUM (NA) 142 MEQ/L (136-145); TOTAL BILIRUBIN ADULT 1.7 MG/DL (0.2-1.0); TOTAL PROTEIN 7.3 GM/DL (6.4-8.2)
[2018-02-07 20:17] LABS: POTASSIUM 2.8 MEQ/L (3.5-5.1)
[2018-02-07] MEDS: POTASSIUM CHLORIDE 20 MEQ CONTROLLED RELEASE TAB PO (20:42)
[2018-02-07] MEDS: POTASSIUM CHLOR 20 MEQ PREMIX 100 ML IV (20:45)
[2018-02-07] MEDS: KETOROLAC TROMETHAMINE 30 MG/ML (IVP) VIAL IV PUSH (20:45)
[2018-02-07 21:45] LABS: ALCOHOL 245 MG/DL (0-5)
== END 2018-02-07 20:51 | disposition home or self-care (01) ==
LOC: NEPE 18:47
DX: S70.01XA Contusion of right hip, initial encounter (principal); S50.11XA Contusion of right forearm, initial encounter; S20.229A Contusion of unspecified back wall of thorax, initial encounter; S09.90XA Unspecified injury of head, initial encounter; E87.6 Hypokalemia; I11.0 Hypertensive heart disease with heart failure; I50.9 Heart failure, unspecified; W17.89XA Other fall from one level to another, initial encounter; Y93.39 Activity, other involving climbing, rappelling and jumping off; Z79.82 Long term (current) use of aspirin; Z79.899 Other long term (current) drug therapy
CPT/HCPCS: 71045; 73502; 80053; 80307; 85025; 85610; 85730; 93005; 99285-25